=== PATIENT | male | born 2000 | race Caucasian/White ===

== ENCOUNTER 2020-09-15 16:50 | Emergency (ER) | payer SELFPAY ==
--- NOTE | 2020-09-15 17:27 | ER Document Report ---
ED Medical Screen (RME) - General Chief Complaint: Psych Problem Stated Complaint: PSYCH EVAL/SUICIDAL IDEATION Time Seen by Provider: 09/15/20 16:57 Mode of Arrival: Ambulatory Information source: Patient Notes: 19-year-old male presented to ED for suicidal ideation. He states he told someone he was cold knife take a knife and kill himself. He is here with his power of patent prosecution attorney. His power of patent prosecution attorney is a family friend who considers him as a little little brother but actually has the paperwork for power of patent prosecution attorney. His power of patent prosecution attorney states that he was on medications until he was 18 and then his family counter turned him loose and let them do what he wanted and he is not capable of being on his own. He his friend states that he has lost his Social Security and is not able to take care of himself and is a danger to himself. States he smokes between 1/2 pack to a pack a day, he states he is not had anything to drink in the last month, he does use marijuana. He states he is living with his power of patent prosecution attorney at this time. I have greeted and performed a rapid initial assessment of this patient. A comprehensive ED assessment and evaluation of the patient, analysis of test results and completion of medical decision making process will be conducted by an additional ED providers. Physical Exam - Vital signs Vitals: Temp Pulse Resp BP Pulse Ox 97.8 F 78 16 116/46 L 97 09/15/20 17:06 09/15/20 17:06 09/15/20 17:06 09/15/20 17:06 09/15/20 17:06 Course - Vital Signs Vital signs: Temp Pulse Resp BP Pulse Ox 97.8 F 78 16 116/46 L 97 09/15/20 17:06 09/15/20 17:06 09/15/20 17:06 09/15/20 17:06 09/15/20 17:06
[2020-09-15 18:10] LABS: ABSOLUTE BASOPHILS # (AUTO) 0.1 10^3/uL (0.0-0.2); ABSOLUTE EOSINOPHILS # (AUTO) 0.2 10^3/uL (0.0-0.6); ABSOLUTE LYMPHOCYTES (AUTO) 2.2 10^3/uL (0.5-4.7); ABSOLUTE MONOCYTES (AUTO) 0.7 10^3/uL (0.1-1.4); ABSOLUTE NEUT (AUTO) 4.3 10^3/uL (1.7-8.2); HEMATOCRIT 42.5 % (37.9-51.0); HEMOGLOBIN 15.5 g/dL (13.5-17.0); LYMPHOCYTES % (AUTO) 29.9 % (13-45); MEAN CORPUSCULAR HGB CONC 36.5 g/dL (32.0-36.0); MEAN CORPUSCULAR VOLUME 96 fl (80-97); MONOCYTES % (AUTO) 9.3 % (3-13); PLATELET COUNT 303 10^3/uL (150-450); RED BLOOD COUNT 4.42 10^6/uL (4.35-5.55); RED CELL DISTRIBUTION WIDTH 12.6 % (11.5-14.0); SEGMENTED NEUTROPHILS % (AUTO) 56.8 % (42-78); TOTAL CELLS COUNTED % (AUTO) 100 %; WHITE BLOOD COUNT 7.5 10^3/uL (4.0-10.5)
[2020-09-15 18:29] LABS: ACETAMINOPHEN < 10 ug/mL (10-30); ALBUMIN 4.9 g/dL (3.7-5.6); ALCOHOL < 10 mg/dL (NONE DETECTED); ALKALINE PHOSPHATASE 104 U/L (65-260); ANION GAP 8 (5-19); ASPARTATE AMINO TRANSFERASE 24 U/L (10-45); BILIRUBIN,TOTAL 0.8 mg/dL (0.2-1.3); BLOOD UREA NITROGEN 15 mg/dL (7-20); CALCIUM 9.9 mg/dL (8.4-10.2); CARBON DIOXIDE 32 mmol/L (22-30); CHLORIDE 100 mmol/L (98-107); GLUCOSE 86 mg/dL (75-110); SALICYLATE < 1.0 mg/dL (2.0-20.0); TOTAL PROTEIN 7.5 g/dL (6.3-8.2)
[2020-09-15 19:37] LABS: APPEARANCE,URINE CLEAR; BILIRUBIN,URINE NEGATIVE (NEGATIVE); COLOR,URINE STRAW; GLUCOSE, URINE NEGATIVE (NEGATIVE); KETONES,URINE NEGATIVE (NEGATIVE); LEUKOCYTE ESTERASE,URINE NEGATIVE (NEGATIVE); NITRITE,URINE NEGATIVE (NEGATIVE); PROTEIN,URINE NEGATIVE (NEGATIVE); URINE SPECIFIC GRAVITY 1.006; UROBILINOGEN,URINE NEGATIVE mg/dL (<2.0)
[2020-09-15 19:51] LABS: URINE AMPHETAMINES SCREEN NEGATIVE; URINE BARBITURATES SCREEN NEGATIVE; URINE BENZODIAZEPINES SCREEN NEGATIVE; URINE COCAINE SCREEN NEGATIVE; URINE METHADONE SCREEN NEGATIVE; URINE PHENCYCLIDINE SCREEN NEGATIVE
[2020-09-15 19:52] LABS: URINE MARIJUANA (THC) SCREEN UNCONFIRMED POSITIVE
--- NOTE | 2020-09-15 20:12 | PSYCHOLOGICAL NOTE ---
Psych Note - Psych Note Date seen by psych provider: 09/15/20 Psych Note: Reason for Consult:Suicidal ideation Consent Permissions: Family friend at bedside per patient's request Patient arrived to [facility] ED via POV for concerns of suicidal ideation. Clinical Presentation: passive suicidal ideation ie no plans mean or intent ADHD probable bipolar disorder IVC Criteria per [facility] 122C Dangerous to others Within the relevant past the individual No has inflicted or attempted to inflict or threatened to inflict serious bodily harm on another AND No that there is a reasonable probability that this conduct will be repeated as there is an absence of supervision or structure to prevent. OR No has acted in such a way as to create a substantial risk of serious bodily harm to another AND No that there is a reasonable probability that this conduct will be repeated as there is an absence of supervision or structure to prevent. OR No has engaged in extreme destruction of property AND NO that there is a reasonable probability that this conduct will be repeated as there is an absence of supervision or structure to prevent. Previous episodes of dangerousness to others, when applicable, may be considered when determining reasonable probability of future dangerous conduct. Clear, cogent, and convincing evidence that an individual has committed a homicide in the relevant past is prima facie evidence of dangerousness to others. Dangerous to self Within the relevant past the individual has done any of the following: acted in such a way as to show ALL of the following: No The individual would be unable without care, supervision, and the continued assistance of others not otherwise available, to exercise self- control, judgment, and discretion in the conduct of the individual's daily responsibilities and social relations or to satisfy the individual's need for nourishment, personal or medical care, residential, or self-protection and safety. AND No There is a reasonable probability of the individual suffering serious physical debilitation within the near future unless adequate treatment is given. A showing of behavior that is grossly irrational, of actions that the individual is unable to control, of behavior that is grossly inappropriate to the situation, or of other evidence of severely impaired insight and judgment shall create a prima facie inference that the individual is unable to care for himself or herself. OR No has attempted suicide or threatened suicide AND No that there is a reasonable probability of suicide unless adequate treatment is given as there is an absence of supervision or structure to prevent suicide of patient who has made an attempt, serious gesture or threat. Patient reports thoughts of self harm that comes and goes. Last event of passive suicidal ideation was 3 days ago. Last event of engaging in self harm cutting was a month ago (no mane or scaring noted on wrist where patient indicated he cut). OR No has mutilated himself or herself or attempted to mutilate himself or herself AND No that there is a reasonable probability of serious self-mutilation unless adequate treatment is given as there is an absence of supervision or structure to prevent. NOTE: Previous episodes of dangerousness to self, when applicable, may be considered when determining reasonable probability of physical debilitation, suicide, or self-mutilation. Medication recommendations per [facility] contracted psychiatrist are as follows: Zyperxa 2.5mg twice daily Clonidine 0.1mg at bedtime Impression\plan: Patient is cleared from acute psychiatric services. Dr. Alfredo was consulted to care management of this patient; attending physicians in agreement with recommendations and disposition.
--- NOTE | 2020-09-15 20:24 | ER Document Report ---
ED General - General Chief Complaint: Psych Problem Stated Complaint: PSYCH EVAL/SUICIDAL IDEATION Time Seen by Provider: 09/15/20 16:57 Mode of Arrival: Ambulatory Information source: Patient Notes: 19-year-old male presented to the emergency department with a history of suicidal ideation. When questioned closely the patient has no clear plan for suicide. He is in a household with a family friend who has power of pound attendant. He is presently on no medications for depression or anxiety. He is a smoker approximately half pack per day and denies alcohol use. He uses marijuana occasionally. - Related Data Allergies/Adverse Reactions: No Known Allergies Allergy (Unverified 09/15/20 21:47) Past Medical History - General Information source: Patient - Social History Smoking Status: Current Every Day Smoker Family History: Reviewed & Not Pertinent Review of Systems - Review of Systems Notes: Constitutional: Negative for fever. HENT: Negative for sore throat. Eyes: Negative for visual changes. Cardiovascular: Negative for chest pain. Respiratory: Negative for shortness of breath. Gastrointestinal: Negative for abdominal pain, vomiting or diarrhea. Genitourinary: Negative for dysuria. Musculoskeletal: Negative for back pain. Skin: Negative for rash. Neurological: Negative for headaches, weakness or numbness. Psychiatric: see HPI 10 point ROS negative except as marked above and in HPI. Physical Exam - Vital signs Vitals: Temp Pulse Resp BP Pulse Ox 97.8 F 78 16 116/46 L 97 09/15/20 17:06 09/15/20 17:06 09/15/20 17:06 09/15/20 17:06 09/15/20 17:06 - Notes Notes: PHYSICAL EXAMINATION: Physical Exam: General: Well-nourished well-developed 19-year-old male in no acute distress HEENT: NC/AT, pupils equal round and reactive to light, MM moist,nares clear, oropharynx clear, airway patent Neck: supple, no adenopathy, no masses. Good range of motion Lungs: clear, no wheezing, no rales no rhonchi CVS: Regular rate and rhythm no murmur gallop or rub Abdomen: Soft, active, nontender, no masses, no hepatosplenomegaly Ext: No edema, clubbing or cyanosis. Neuro: Alert and responsive, moving all 4 extremities on command, cranial nerves intact, no focal findings Skin: Intact no open lesions, no rash PSYCH: Denies auditory or visual hallucinations, denies suicidal plan. Cooperative and answer questions appropriately. Course - Re-evaluation Re-evalutation: 09/15/20 20:28 Patient seen by behavioral health and a recommendation for Zyprexa and clonidine was given. Patient is given a single dose of each medication here in emergency department a prescription for 2-week supply is written. He will be following up in the outpatient setting. Patient and his power of pound attendant are in agreement with this plan. - Vital Signs Vital signs: Temp Pulse Resp BP Pulse Ox 97.7 F 54 L 18 99/71 L 100 09/15/20 22:01 09/15/20 22:01 09/15/20 22:01 09/15/20 22:01 09/15/20 22:01 - Laboratory Result Diagrams: 09/15/20 17:50 09/15/20 17:50 Laboratory results interpreted by me: 09/15/20 09/15/20 09/15/20 17:50 17:50 19:20 MCH 35.0 H MCHC 36.5 H Carbon Dioxide 32 H Urine Blood MODERATE H Salicylates < 1.0 L Acetaminophen < 10 L 09/15/20 20:29 I have reviewed laboratory data and used this information for the treatment decisions regarding the patient. - EKG Interpretation by Me Rate: Normal - EKG interpreted by Dr. Barrios: Normal sinus rhythm, rate 78, VA interval 120 ms, QT interval 360 ms, normal axis, no acute ST or T wave abnormalities, no ischemic findings, there is no prior EKG for comparison. Interpretation normal EKG Discharge - Discharge Clinical Impression: Suicidal thoughts Bipolar disorder Qualifiers: Active/Remission status: currently active Current bipolar episode type: mixed Current episode severity: mild Qualified Code(s): F31.61 - Bipolar disorder, current episode mixed, mild Condition: Good Disposition: HOME, SELF-CARE Instructions: Bipolar Disorder ([facility]) Additional Instructions: You were seen in the emergency department tonight and begun on medications for bipolar illness. Please follow-up as an outpatient as you were directed. If there is a worsening condition or other concerns you may return to the emergency department for further evaluation treatment HOME CARE INSTRUCTIONS & INFORMATION: Thank you for choosing us for your medical needs. We hope you're satisfied with the care you received. After you leave, you must properly care for your problem and, at the same time, observe its progress. Any condition can change. Some illnesses can change rapidly over hours or days. If your condition worsens, return to the Emergency Department or see your physician promptly. ABOUT YOUR X-RAYS AND EKG'S: If you had an EKG or X-rays taken, they have been read by the Emergency Physician. The X-rays and EKG's will also be read by a Radiologist or Livestock Handler within 24 hours. If discrepancies are noted, you will be notified by telephone. Please be certain the ED has a correct telephone number & address where you can be reached. Also, realize that some fractures or abnormalities do not show up on initial X-rays. If your symptoms continue, see your physician. ABOUT YOUR LABORATORY TEST: If you had laboratory tests, the results have been reviewed by the Emergency Physician. Some test results (for example cultures) may not be available for several days. You will be contacted if any test result shows you need additional treatment. Please be certain the ED has a correct telephone number and address where you can be reached. ABOUT YOUR MEDICATIONS: You will receive instructions on how to take your medicine on the prescription label you receive. Additional information may be provided by the Pharmacy. If you have questions afterwards, call the ED for clarification or further instructions. Some prescribed medications may cause drowsiness. Do not perform tasks such as driving a car or operating machinery without consulting your Pharmacist. If you feel you need a refill of pain medication, your condition will need re-evaluation. Please do not call for a refill of any medication. ABOUT YOUR SIGNATURE: Signature of this document acknowledges to followin. Understanding that you received emergency treatment and that you may be released before al medical problems are known or treated. Please be certain the ED has a correct phone number & address where you can be reached. 2. Acknowledgement that you will arrange for follow-up care as recommended. 3. Authorization for the Emergency Physician to provide information to your follow-up Physician in order to maximize your care. AT ANY TIME, IF YOUR SYMPTOMS CHANGE SIGNIFICANTLY OR WORSEN OR YOU DEVELOP NEW SYMPTOMS, RETURN TO THE EMERGENCY DEPARTMENT IMMEDIATELY FOR RE-EVALUATION. OUR GOAL IS TO PROVIDE EXCELLENT MEDICAL CARE! WE HOPE THAT WE HAVE MET YOUR EXPECTATIONS DURING YOUR EMERGENCY DEPARTMENT VISIT AND THAT YOU FEEL YOU HAVE RECEIVED EXCELLENT CARE! Prescriptions: Clonidine HCl [Catapres 0.1 mg Tablet] 0.1 mg PO QHS #15 tablet Olanzapine [Zyprexa 2.5 Mg Tablet] 2.5 mg PO BID #28 tablet
[2020-09-15] MEDS ORDERED: OLANZAPINE 2.5 MG TABLET PO ONE (20:32)
[2020-09-15] MEDS ORDERED: CLONIDINE HCL 0.1 MG TABLET PO ONE (20:33)
--- NOTE | 2020-09-15 20:42 | EKG REPORT ---
SEVERITY:- NORMAL ECG - SINUS RHYTHM : Confirmed by: Mike Pichardo MD 15-Sep-2020 20:40:50
[2020-09-15 22:06] VITALS: BP 99/71
== END 2020-09-15 22:08 | disposition home or self-care (01) ==
LOC: ER 16:50
DX: F31.61 Bipolar disorder, current episode mixed, mild (principal); R45.851 Suicidal ideations; F17.210 Nicotine dependence, cigarettes, uncomplicated
CPT/HCPCS: 93005; 99285; 36415; 80307 ×4; 85025; 80053; 81001; 93010; J3490